=== PATIENT | male | born 1995 | race African-American/Black ===

== ENCOUNTER 2025-10-08 16:53 | Inpatient (IN) | payer SELFPAY ==
[2025-10-08 17:03] VITALS: BP 143/93; PULSE 82; RESP 16; TEMP 36.6; O2SAT 100
--- NOTE | 2025-10-08 17:22 | W.ED.PSYCHS ---
HPI - Psych General: Chief Complaint: Psychiatric Symptoms Stated Complaint: 96 HOLD Time Seen by Provider: 10/08/25 16:54 Source: patient and police Limitations: no limitations History of Present Illness: 30-year-old male who is here under court ordered 96-hour hold. Family states that he has had erratic behavior with paranoia and some hallucinations. Patient here denies SI HI but will not answer most of my questions he states he has had psych diagnoses in the past but will not disclose them to me. Is not on any meds currently Related Data Allergies Allergy/AdvReac Type Severity Reaction Status Date / Time No Known Allergies Allergy Verified 10/08/25 17:03 Review of Systems Psych: Reports: mood swings Physical Exam Const: COMMON NORMALS: no acute distress, patient oriented x3 and healthy appearing HENMT: COMMON NORMALS: normocephalic and atraumatic HEAD & SCALP: normocephalic and atraumatic Neck/C-Spine: COMMON NORMALS: full ROM and supple Chest: COMMONS NORMALS: normal inspection of the chest Resp: COMMON NORMALS: normal respiratory effort Cardio: COMMON NORMALS: regular rate RATE: regular rate Extremity: COMMON NORMALS: normal to inspection and full ROM Neuro: COMMON NORMALS: patient oriented x3, moves all extremities and no focal motor deficits Psych: COMMON NORMALS: mental status grossly normal and Normal thought process present; negative for cooperative THOUGHT PROCESS: Normal thought process present Skin: COMMON NORMALS: no rashes or lesions noted and no wounds GENERAL SKIN EXAM: no rashes or lesions noted Course Vital Signs: Vital signs: Vital Signs Temperature 97.8 F 10/08/25 17:03 Pulse Rate 82 10/08/25 17:03 Respiratory Rate 16 10/08/25 17:03 Blood Pressure 143/93 10/08/25 17:03 Pulse Oximetry 100 10/08/25 17:03 MDM - Psych Medical Decision Making Patient presents here with acute psychosis placed on a court ordered 96-hour hold. He is medically cleared labs here are all normal spoke to psychiatrist will admit at this time. Medical Records I reviewed the patient's medical records. Lab Data I reviewed the patient's lab results. 10/08/25 18:04 10/08/25 18:04 Laboratory Results WBC 10.37 10^3/uL (3.29-11.43) 10/08/25 18:04 RBC 4.88 10^6/uL (3.85-5.65) 10/08/25 18:04 Hgb 14.30 g/dL (11.27-16.99) 10/08/25 18:04 Hct 43.2 % (37-53) 10/08/25 18:04 MCV 88.5 fl (82-101) 10/08/25 18:04 MCH 29.3 pg (27-33) 10/08/25 18:04 MCHC 33.1 g/dL (30-55) 10/08/25 18:04 RDW 14.9 % (12.1-15.1) 10/08/25 18:04 Plt Count 261 10^3/cmm (157-399) 10/08/25 18:04 MPV 9.0 fL (7.4-10.4) 10/08/25 18:04 Neut % (Auto) 72.4 % 10/08/25 18:04 Lymph % (Auto) 22.6 % 10/08/25 18:04 Wilkes % (Auto) 4.2 % 10/08/25 18:04 Eos % (Auto) 0.5 % 10/08/25 18:04 Baso % (Auto) 0.1 % 10/08/25 18:04 Neut # (Auto) 7.51 10^3/uL (1.8-7.7) 10/08/25 18:04 Lymph # (Auto) 2.3 10^3/uL (0.8-4.8) 10/08/25 18:04 Wilkes # (Auto) 0.4 10^3/uL (0.2-0.9) 10/08/25 18:04 Eos # (Auto) 0.1 10^3/uL (0.0-0.8) 10/08/25 18:04 Baso # (Auto) 0.0 10^3/uL (0.0-0.1) 10/08/25 18:04 Nucleated RBC % (auto) 0 % 10/08/25 18:04 Nucleated RBCs # 0.0 /100WBC 10/08/25 18:04 Urine Opiates Screen Negative ng/mL (Negative) 10/08/25 17:10 Ur Barbiturates Screen Negative ng/mL (Negative) 10/08/25 17:10 Ur Phencyclidine Scrn Negative ng/mL (Negative) 10/08/25 17:10 Ur Amphetamines Screen Negative ng/mL (Negative) 10/08/25 17:10 U Benzodiazepines Scrn Negative ng/mL (Negative) 10/08/25 17:10 Urine Cocaine Screen Negative ng/mL (Negative) 10/08/25 17:10 U Marijuana (THC) Screen Positive ng/mL (Negative) H 10/08/25 17:10 No radiology studies performed this visit Discharge Plan Discharge Patient Disposition: Admitted As Inpatient Clinical Impression: Acute psychosis Condition: Stable Coding Level of Care Code ED Principal Systems Architect for Lacie Villasenor
[2025-10-08 17:40] LABS: PCP Screen Urine Negative (Negative)
[2025-10-08 18:10] LABS: Hematocrit 43.2 % (37-53); Hemoglobin 14.30 g/dL (11.27-16.99); Mean Corpuscular HGB Conc 33.1 g/dL (30-55); Mean Corpuscular Hemoglobin 29.3 pg (27-33); Mean Corpuscular Volume 88.5 fl (82-101); Nucleated Red Blood Cells % 0 %; Platelet Count 261 10^3/cmm (157-399); Red Blood Count 4.88 10^6/uL (3.85-5.65); White Blood Count 10.37 10^3/uL (3.29-11.43)
[2025-10-08 18:32] LABS: Alanine Aminotransferase 10 U/L (0-41); Albumin Level 4.4 g/dL (3.5-5.2); Alkaline Phosphatase 59 U/L (40-130); Anion Gap 16.0 (5-19); Aspartate Amino Transferase 12 U/L (0-40); Blood Urea Nitrogen 12 mg/dL (6-20); Calcium 9.3 mg/dL (8.5-10.5); Carbon Dioxide 26 mmol/L (22-29); Chloride 101 mmol/L (98-107); Globulin 3.0 g/dL (1.3-4.6); Glucose 130 mg/dL (65-115); Osmolality Calculated 290 mOsm/kg (285-295); Potassium 4.0 mmol/L (3.5-5.1); Sodium 139 mmol/L (136-145); Total Protein 7.4 g/dL (6.6-8.7)
[2025-10-08 18:40] LABS: Acetaminophen < 5.0 ug/mL (10-30); Alcohol Level < 10 mg/dL (0-10); Salicylate < 0.3 mg/dL (3-10)
--- OUTSIDE RECORDS SUMMARY | 2025-10-08 20:51 | XMS_ITS | Encounter Summary ---
Author Organization [facility] Address [address] [place] [address] Care Team Providers Care Freight Trucker Name Role Phone Osman Her MD Primary Care Provider Unavaila ble Encounter Details Date Type Department Care Team (Latest Contact Info) Description 02/06/1998 Outpatient Historical [facility] [place] [address] [place] [phone] Osman Her MD NO ADDRESS ON FILE Unspecified viral infection, in conditions classified elsewhere and of unspecified site (Primary Dx) Social History Tobacco Use Types Packs/Day Years Used Date Smoking Tobacco: Never Assessed Sex and Gender Information Value Date Recorded Sex Assigned at Not on file 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
--- OUTSIDE RECORDS SUMMARY | 2025-10-08 20:51 | XMS_ITS | Encounter Summary ---
Author Organization [facility] Address [address] [place] [address] Care Team Providers Care Petroleum Analyst Name Role Phone Osman Her MD Primary Care Provider Unavaila ble Encounter Details Date Type Department Care Team (Latest Contact Info) Description 05/29/2003 Inpatient Historical [facility] Emergency Department [address] [place] [address] Rocael Lomas MD [address] [address] ACUTE APPENDICITIS NOS (Primary Dx) Social History Tobacco Use Types Packs/Day Years Used Date Smoking Tobacco: Never Assessed Sex and Gender Information Value Date Recorded Sex Assigned at Not on file 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
--- OUTSIDE RECORDS SUMMARY | 2025-10-08 20:51 | XMS_ITS | Clinical Summary ---
Author Organization [facility] Address [address] [facility] [facility] Attn: Epic Prelude ADT GENARO SHEN [address] Care Team Providers Care Aircraft Technician Name Role Phone Unavailable Primary Care Provider Unavailabl e Allergies No known active allergies Medications No known medications Encounters Date Type Department Care Team Description 09/09/2025 External Device Data [facility] ABSTRACTION Provider, Abstract 09/02/2025 External Device Data [facility] ABSTRACTION Provider, Abstract 09/02/2025 External Device Data [facility] ABSTRACTION Provider, Abstract 08/27/2025 External Device Data [facility] ABSTRACTION Provider, Abstract 08/27/2025 External Device Data [facility] ABSTRACTION Provider, Abstract 08/12/2025 External Device Data [facility] ABSTRACTION Provider, Abstract 07/15/2025 External Device Data [facility] ABSTRACTION Provider, Abstract from Last 3 Months Immunizations Immunization Administration Dates Next Due (M-M-R II/PRIORIX)(12 MO UP) MEASLES, MUMPS AND RUBELLA VIRUS VACCINE, 0.5 ML IM/SUBCUT 05/29/1998,04/14/1995 Dt Dtp Dtap Vaccine 05/29/1998, 5,03/25/1994,01/18,1993 HIB, Unspecified Formulation 04/14/1995, 03/25/1994,01/18/1994,11/19 Hepatitis B Vaccine 1994,03/22/1994,1993 IPV/OPV 05/29/1998, 4,01/18/1994,11/19 Meningococcal A Conjugate Vaccine IM 01/07/2009 Social History Tobacco Use Types Packs/Day Years Used Date Smoking Tobacco: Every Day Cigarettes Smokeless Tobacco: Never Alcohol Use Standard Drinks/Week Comments No 0 (1 standard drink = 0.6 oz pur e alcohol) Feeling Safe Answer Date Recorded Are you in a relationship wi th someone who hurts you emotionally and/or physically? 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 Gender Identity Not on file Sexual Orientation Not on file Last Filed Vital Signs Vital Sign Reading Time Taken Comments Blood Pressure 120/60 02/10/2025 4:41 PM CDT Pulse 70 02/10/2025 4:41 PM CDT Temperature 36.5 C (97.7 F) 02/10/2025 3:55 PM CDT Respiratory Rate 20 02/10/2025 4:41 PM CDT Oxygen Saturation 100% 02/10/2025 4:41 PM CDT Inhaled Oxygen Concentration - - Weight 63.5 kg (140 lb) 02/10/2025 3:55 PM CDT Height 172.7 cm (5' 8 ) 02/10/2025 3:55 PM CDT Body Mass Index 21.29 02/10/2025 3:55 PM CDT Plan of Treatment Health Maintenance Due Date Last Done Comments DTAP/TDAP/TD VACCINES (6 - Tdap) 2004 05/29/1998, 05/29/1998, 04/14/1995, Additional history exists INFLUENZA VACCINE (#1) 2025 HEPATITIS B VACCINES Completed 1994, 1994, 03/22/1994, Additional history exists HPV VACCINES (No Doses Required) Completed Insurance [facility] [employer] RX [facility] Commercial
--- OUTSIDE RECORDS SUMMARY | 2025-10-08 20:51 | XMS_ITS | Encounter Summary ---
Author Organization [facility] Address [address] [place] [address] Care Team Providers Care Membership Sales Manager Name Role Phone Osman Her MD Primary Care Provider Unavaila ble Encounter Details Date Type Department Care Team (Latest Contact Info) Description 03/07/2003 Outpatient Historical [facility] [address] [place] [phone] Osman Her MD NO ADDRESS ON FILE INJURY-SITE NOS (Primary Dx) Social History Tobacco Use Types Packs/Day Years Used Date Smoking Tobacco: Never Assessed Sex and Gender Information Value Date Recorded Sex Assigned at Not on file 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
--- OUTSIDE RECORDS SUMMARY | 2025-10-08 20:51 | XMS_ITS | Encounter Summary ---
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
--- OUTSIDE RECORDS SUMMARY | 2025-10-08 20:51 | XMS_ITS | Encounter Summary ---
Author Organization [facility] Address [address] [place] [address] Care Team Providers Care Sugar Trucker Name Role Phone Osman Her MD Primary Care Provider Unavaila ble Encounter Details Date Type Department Care Team (Late st Contact Info) Description 05/29/1998 Outpatient Historical [facility] [place] [address] [place] [id number] Osman Her MD NO ADDRESS ON FILE Social History Tobacco Use Types Packs/Day Years Used Date Smoking Tobacco: Never Assessed Sex and Gender Information Value Date Recorded Sex Assigned at Not on file 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
--- OUTSIDE RECORDS SUMMARY | 2025-10-08 20:51 | XMS_ITS | Encounter Summary ---
Author Organization [facility] Address [address] [place] [address] Care Team Providers Care Shot Bagger Name Role Phone Osman Her MD Primary Care Provider Unavaila ble Encounter Details Date Type Department Care Team (Latest Contact Info) Description 02/04/2004 Outpatient Historical [facility] Orthopedics- [address] [place] 

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
--- OUTSIDE RECORDS SUMMARY | 2025-10-08 20:51 | XMS_ITS | Encounter Summary ---
Author Organization [facility] Address [address] [place] [address] Care Team Providers Care Play Leader Name Role Phone Osman Her MD Primary Care Provider Unavaila ble Encounter Details Date Type Department Care Team (Latest Contact Info) Description 07/11/2000 Outpatient Historical [facility] Pediatrics[facility] [address] [place] [phone] Memo Degroot MD NO ADDRESS ON FILE Acute pharyngitis (Primary Dx) Social History Tobacco Use Types Packs/Day Years Used Date Smoking Tobacco: Never Assessed Sex and Gender Information Value Date Recorded Sex Assigned at Not on file 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
--- OUTSIDE RECORDS SUMMARY | 2025-10-08 20:51 | XMS_ITS | Clinical Summary ---
Author Organization [facility] Address [address] [place] [address] Phone Care Team Providers Care Crop Specialist Name Role Phone Unavailable Primary Care Provider Unavailabl e Allergies No known active allergies Medications meloxicam (MOBIC) 15 mg Oral tabletIndication s:Right shoulder injury Take 1 Tab by mouth daily. 30 Tab 1 07/17/2013 Active Hospital, Clinic, or Other Facility Administered Medication Ordered Dose Route Frequency Start Date End Date Status methylPREDNISolone acetate (DEPO-Medrol) injection 80 mgIndications:Contact dermatitis, unspecified contact dermatitis type, unspecified trigger,Pityriasis rosea-like skin eruption 80 mg IM ONE TIME ONLY 10/09/2017 Active Active Problems No known active problems Immunizations Immunization Administration Dates Next Due (M-M-R II/PRIORIX)(12 MO UP) MEASLES, MUMPS AND RUBELLA VIRUS VACCINE, 0.5 ML IM/SUBCUT 05/29/1998,04/14/1995 Dt Dtp Dtap Vaccine 05/29/1998, 5,03/25/1994,01/18,1993 HIB, Unspecified Formulation 04/14/1995, 03/25/1994,01/18/1994,11/19 Hepatitis B Vaccine 1994,03/22/1994,1993 IPV/OPV 05/29/1998,199 4,01/18/1994,11/19 Meningococcal A Conjugate Vaccine IM 01/07/2009 Social History Tobacco Use Types Packs/Day Years Used Date Smoking Tobacco: Every Day Cigarettes 0.5 2 Smokeless Tobacco: Never Tobacco Cessation:Ready to Q uit: No Alcohol Use Standard Drinks/Week Comments No 0 (1 standard drink = 0.6 oz pur e alcohol) Sex and Gender Information Value Date Recorded Sex Assigned at Not on file Legal Sex Male 6:28 AM RN RESOURCE NURSE Gender Identity Not on file Sexual Orientation Not on file Last Filed Vital Signs Vital Sign Reading Time Taken Comments Blood Pressure 122/70 10/09/2017 2:11 PM RN RESOURCE NURSE Pulse 82 10/09/2017 2:11 PM RN RESOURCE NURSE Temperature 36.8 C (98.2 F) 10/09/2017 2:11 PM RN RESOURCE NURSE Respiratory Rate 18 01/17/2012 4:20 PM CDT Oxygen Saturation 100% 10/09/2017 2:11 PM RN RESOURCE NURSE Inhaled Oxygen Concentration - - Weight 67.1 kg (148 lb) 10/09/2017 2:11 PM RN RESOURCE NURSE Height 165.1 cm (5' 5 ) 10/09/2017 2:11 PM RN RESOURCE NURSE Body Mass Index 24.63 10/09/2017 2:11 PM RN RESOURCE NURSE Plan of Treatment Health Maintenance Due Date Last Done Comments DTAP/TDAP/TD VACCINES (6 - Tdap) 2004 05/29/1998, 04/14/1995, 03/25/1994, Additional history exists INFLUENZA VACCINE (#1) 2025 HEPATITIS B VACCINES Completed 1994, 03/22/1994, 1993 HPV VACCINES (No Doses Required) Completed Insurance [employer] Member Subscriber Plan / Payer (Ef fective 2013-Present) Name:Sd Leon Relation to Subscriber:Employee Name:[employer]INTIA Address: [address] [place] [address] Payer ID:Not on file Group ID:Not on file Type:Workers Compensation Address: [address] [phone]
--- NOTE | 2025-10-09 02:15 | PC.NURSE ---
Pt resting quietly in bed with eyes closed. RR even and unlabored.
--- NOTE | 2025-10-09 04:10 | PC.NURSE ---
Pt is resting in bed with eyes closed. RR even and unlabored.
--- NOTE | 2025-10-09 06:44 | PC.NURSE ---
Pt is lying in bed with eyes closed. RR even and unlabored.
--- NOTE | 2025-10-09 07:38 | PC.PHAR ---
No recent medications found except Trazodone from [facility] in April 2025.
[2025-10-09 14:39] VITALS: BP 152/91; PULSE 100; O2SAT 100
[2025-10-09 14:59] VITALS: BP 137/93; PULSE 93; RESP 18; TEMP 36.7; O2SAT 100
[2025-10-09 20:19] VITALS: BP 120/81; PULSE 100; RESP 18; TEMP 37.4; O2SAT 99
[2025-10-09] MEDS: MELATONIN 3 MG TABLET 9 MG PO (21:07)
[2025-10-10 06:00] VITALS: RESP 16
--- NOTE | 2025-10-10 06:47 | PC.NURSE ---
vs not completed pt sleeping soundly, nurse notified resp 16
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
[2025-10-10 13:55] VITALS: BP 131/76; PULSE 108; RESP 18; TEMP 37.1; O2SAT 100
--- NOTE | 2025-10-10 15:03 | PC.NURSE ---
Patient assessment completed. Patient denies SI/HI/AVH. Patient reports nightmares that are based on his environment. He states nightmare come from the brain and not the environment. He reports asked this RN if i believed in ghosts. He reports that the ghosts dragons are present even though he knows in a scientific sense they are not real. He reports that the ghosts started following him years ago when he let yazidism friends move into his home. Asked patient the social determinants of health questionnaire. Patient reports that he has food but has had to turn his machines off due to the energy that they emit. He reports that the being left as soon as the heater kicked on in the dayroom. He reports a decrease of the being after he talks about them. Reorientation to unit norms and instructed to talk to staff if this being is a concern or he has intrusive thoughts. Patient verbalized understanding.
--- NOTE | 2025-10-10 16:35 | PC.NURSE ---
Patients mother was here to visit patient. She reports that patient was on Haldol deconate and has not had a dose for the past 6 months. She verbalized that the patient believes that he can't . Patient states that he only leaves the house to visit his aunt every few days due to needing to hear a familiar voice. If questions mother can be reached on her cell. [phone].
[2025-10-10 20:10] VITALS: BP 142/89; PULSE 106; RESP 18; TEMP 37.6; O2SAT 100
[2025-10-10] MEDS: MELATONIN 3 MG TABLET 9 MG PO (23:40)
[2025-10-11 06:00] VITALS: RESP 16
--- NOTE | 2025-10-11 06:45 | PC.NURSE ---
vs not completed pt sleeping soundly, nurse notified resp 16
--- NOTE | 2025-10-11 13:34 | P.NPUPN_ITS ---
Subjective NPU 2 Subjective: Patient presented today reporting that he is doing all right. He continues to seem to downplay the odd, likely psychotic thoughts that he has per staff reports and direct observation. He is fairly adept at avoiding some subjects that would reveal his level of impairment. Speaking with some staff about his belief that he is invincible and that he is a God. 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 It is unclear whether that is accurate or not but he speaks very astutely about it. He continues to deny desire or need for medication. Mental Status Exam 2 MSE Comments: This is a well-nourished well-developed male in hospital scrubs with adequate grooming and eye contact with fairly wild curly hair. No abnormal movements except for mild psychomotor retardation. Cooperative with exam and no acute distress. Speech was slightly decreased rate and volume and measured. Mood described as good, affect mostly euthymic. Thought process organized. Thought content: Patient denied suicidal or homicidal he, there are no delusions reported but possible paranoid, persecutory, grandiose and hyperreligious delusions noted, he denied auditory or visual hallucinations. Denies any thoughts to hurt or kill himself, and no history of self-injurious behavior. Denies hearing voices or seeing things that others cannot. Expressed concerns about AI interfering with the internet, which could suggest some level of delusional thinking, but acknowledged he cannot prove or disprove it. Denies understanding or experiencing anxiety or depression. Describes himself as a nice jaylen and honest person, suggesting a stable mood. Attention and concentration appeared intact and memory was somewhat unreliable but likely intentionally so but none were formally tested. He is alert and oriented x person and place. Insight is limited, judgment appeared fair, impulse control limited. Vitals/I&O/Wt Last Vital Signs Temp 99.7 F H 10/10/25 20:10 Pulse 106 H 10/10/25 20:10 Resp 16 10/11/25 06:00 BP 142/89 10/10/25 20:10 Pulse Ox 100 10/10/25 20:10 O2 Del Method Room Air 10/10/25 20:10 Data NPU 10/08/25 18:04 10/08/25 18:04 A&P Assessment and plan 1. Acute psychosis: 2. Cannabis use disorder: Plan: This is a 30-year-old male who is unknown to [facility] psychiatry with some reports of some past mental health treatment years in the past per his family's request but never by his own assessment and need who presents with reports of odd behavior appearing a bit eccentric likely downplaying his cannabis use and 96-hour hold. No report of depression, anxiety or any other significant symptoms however concerns for odd behavior belief of instability or guide complex and occult paranoia may be present. Plan Collateral information will be obtained to clarify concerns regarding reported bizarre behavior and possible psychosis. Further assessment will be conducted as information is gathered, with ongoing evaluation planned on a day-to-day basis. 1. Consider medication options but patient reports no interest in medication. 2. Continue every 15 minute checks for safety. 3. Encourage individual, group and milieu therapy. 4. Encourage sober living treatment after discharge at the highest level care to which he is willing to commit. 5. Obtain collateral information. 6. Evaluate against backdrop of the 96-hour hold. PDMP PDMP Reviewed: Not Reviewed Involuntary Hold Information 2 Hold Status: Legal Status: 96 Hour Hold Date/Time Hold Expires: 10/14/2025 @ 1719 Attestations NPU 2 Medical Necessity Statement*: Inpatient hospitalization is medically necessary and the clinically appropriate intervention at this time. Will monitor/initiate medications and make changes as indicated. Likely length of stay 2-4 days. Coding Level of Care Code Acute Code for Chg Fwd Diagnoses Acute psychosis F23 Cannabis use disorder F12.90
[2025-10-11 13:36] VITALS: BP 146/87; PULSE 82; RESP 18; TEMP 36.8; O2SAT 97
--- NOTE | 2025-10-11 14:33 | PC.NURSE ---
Earlier in the shift the patient reported to the nurses station asking how he could report to police that he is being gaslit. Instructed patient that if he has complaints or is feeling harassed he could speak to the court to file an exparte. Patient was cooperative during the assessment and repeatedly mentioned that those with episcopalian have been harassing him, specifically his aunt. He also reports that he is fluent in Albanian, Turkmen and Slovak as well as other languages. Patient reports that he had previously been on Haldol IM and Resperidone PO and these medications made him feel like he had a weight inside of his head. He denies SI/HI/AVH. He reports that the ear plugs help with the sounds he has been hearing.
--- NOTE | 2025-10-11 19:41 | PC.NURSE ---
After assessment pt admitted hearing a computer A.I. and machines talking to him as if it was normal.
[2025-10-11 20:18] VITALS: BP 154/104; PULSE 87; RESP 17; TEMP 36.8; O2SAT 100
[2025-10-12 06:00] VITALS: RESP 17; BMI 21.4
--- NOTE | 2025-10-12 08:34 | PC.NURSE ---
pt slept thru breakfast. pt was woke up x2.
[2025-10-12 14:32] VITALS: BP 131/91; PULSE 93; RESP 18; TEMP 37; O2SAT 100
--- NOTE | 2025-10-12 17:12 | P.NPUPN_ITS ---
Subjective NPU 2 Subjective: 30-year-old male admitted with psychosis currently involuntarily hospitalized. The patient appeared to be having an extended conversation with himself while in the day room but when asked this question he had denied having a conversation. He had continued to state that he did not need to be here in the hospital and did not know why he was here. He had acknowledged having previously been in the hospital. He remained somewhat resistant as a historian by being guarded regarding his beliefs as he had stated that he had practiced a specific yazidism. 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 The patient appeared annoyed and asked if this health technical writer was okay repeatedly. Mental Status Exam 2 MSE Comments: This is a well-nourished well-developed male in hospital scrubs with adequate grooming and eye contact with curly hair. No abnormal involuntary motor movements except for mild psychomotor retardation. He was somewhat cooperative with exam and no acute distress. Speech was slightly decreased in rate and normal in volume. Mood described as good, affect was irritable. Thought process was linear and organized. Thought content: Patient denied suicidal or homicidal ideation. There was evidence of ideas of reference and grandiosity appreciated. Denies hearing voices or seeing things that others cannot but did appear to be responding to internal stimuli. Attention and concentration appeared poor. Recent and remote memory were impaired. He is alert and oriented x person and place. Insight is limited, judgment appeared poor and impulse control was poor. Vitals/I&O/Wt Last Vital Signs Temp 98.6 F 10/12/25 14:32 Pulse 93 10/12/25 14:32 Resp 18 10/12/25 14:32 BP 131/91 10/12/25 14:32 Pulse Ox 100 10/12/25 14:32 O2 Del Method Room Air 10/11/25 20:18 Weight last 48 hrs Weight 65.998 kg Data NPU 10/08/25 18:04 10/08/25 18:04 A&P Assessment and plan 1. Acute psychosis: 2. Cannabis use disorder: Plan: This is a 30-year-old male who is unknown to [facility] psychiatry with some reports of some past mental health treatment years in the past per his family's request but never by his own assessment and need who presents with reports of odd behavior appearing a bit eccentric likely downplaying his cannabis use and 96-hour hold. No report of depression, anxiety or any other significant symptoms however concerns for odd behavior belief of instability or guide complex and occult paranoia may be present. Plan Collateral information will be obtained to clarify concerns regarding reported bizarre behavior and possible psychosis. Further assessment will be conducted as information is gathered, with ongoing evaluation planned on a day-to-day basis. 1. Consider medication options but patient reports no interest in medication and may require forced medications. 2. Continue every 15 minute checks for safety. 3. Encourage individual, group and milieu therapy. 4. Encourage sober living treatment after discharge at the highest level care to which he is willing to commit. 5. Obtain collateral information. 6. Evaluate against backdrop of the 96-hour hold. PDMP PDMP Reviewed: Not Reviewed Involuntary Hold Information 2 Hold Status: Legal Status: 96 Hour Hold Date/Time Hold Expires: 10/14/2025 @ 1719 Attestations NPU 2 Medical Necessity Statement*: Inpatient hospitalization is medically necessary and the clinically appropriate intervention at this time. Will monitor/initiate medications and make changes as indicated. The patient's likely length of stay is 5-7 days. Coding Level of Care Code Acute Code for g Fwd Diagnoses Acute psychosis F23 Cannabis use disorder F12.90
[2025-10-12 20:33] VITALS: BP 142/91; PULSE 98; RESP 17; TEMP 36.7; O2SAT 100
[2025-10-13 06:00] VITALS: RESP 16
--- NOTE | 2025-10-13 06:32 | PC.NURSE ---
vs not completed pt sleeping soundly nurse notified resp 16
[2025-10-13 14:00] VITALS: BP 123/85; PULSE 85; RESP 16; TEMP 36.6; O2SAT 99
--- NOTE | 2025-10-13 17:00 | P.NPUPN_ITS ---
Subjective NPU 2 Subjective: 30-year-old male admitted with psychosis currently involuntarily hospitalized. The patient had minimized any concerns that others had had regarding his placement here involuntarily. He had reported that he knew better. He had reported that he had done nothing dangerous and was inappropriately placed here. Patient continued to have conversations with himself while in the day room. Patient had reported that he had several homes and had many jobs and important things to do outside of this place. He had struggled at times with falling asleep. He continued to eat and drink and struggled with self-care with limited ability to complete activities of daily living. Mental Status Exam 2 MSE Comments: This is a well-nourished well-developed male in hospital scrubs with poor grooming and eye contact with disheveled curly hair. No abnormal involuntary motor movements except for mild psychomotor retardation. He was superficially cooperative with exam and no acute distress. Speech was decreased in rate and normal in volume. Mood described as okay. affect was exuberant Thought process was linear and organized. Thought content: Patient denied suicidal or homicidal ideation. There was evidence of ideas of reference and grandiosity appreciated. He denies hearing voices or seeing things that others cannot but did appear to be responding to internal stimuli. Attention and concentration appeared poor. Recent and remote memory were impaired. He is alert and oriented x person and place. Insight is limited, judgment appeared poor and impulse control was poor. Vitals/I&O/Wt Last Vital Signs Temp 97.9 F 10/13/25 14:00 Pulse 85 10/13/25 14:00 Resp 16 10/13/25 14:00 BP 123/85 10/13/25 14:00 Pulse Ox 99 10/13/25 14:00 O2 Del Method Room Air 10/13/25 14:00 10/13/25 10/13/25 10/13/25 06:59 14:59 22:59 Intake Total 240 / 240 Balance 240 / 240 Weight last 48 hrs Weight 65.998 kg Data NPU 10/08/25 18:04 10/08/25 18:04 A&P Assessment and plan 1. Acute psychosis: 2. Cannabis use disorder: Plan: This is a 30-year-old male who is unknown to [facility] psychiatry with some reports of some past mental health treatment years in the past per his family's request but never by his own assessment and need who presents with reports of odd behavior appearing a bit eccentric likely downplaying his cannabis use and 96-hour hold. No report of depression, anxiety or any other significant symptoms however concerns for odd behavior belief of instability or guide complex and occult paranoia may be present. Plan Collateral information will be obtained to clarify concerns regarding reported bizarre behavior and possible psychosis. Further assessment will be conducted as information is gathered, with ongoing evaluation planned on a day-to-day basis. 1. Consider medication options but patient reports no interest in medication and may require forced medications. 2. Continue every 15 minute checks for safety. 3. Encourage individual, group and milieu therapy. 4. Encourage sober living treatment after discharge at the highest level care to which he is willing to commit. 5. Obtain collateral information. 6. Continue to evaluate against backdrop of the 96-hour hold. PDMP PDMP Reviewed: Not Reviewed Involuntary Hold Information 2 Hold Status: Legal Status: 96 Hour Hold Date/Time Hold Expires: 10/14/2025 @ 1719 Attestations NPU 2 Medical Necessity Statement*: Inpatient hospitalization is medically necessary and the clinically appropriate intervention at this time. Will monitor/initiate medications and make changes as indicated. The patient's likely length of stay is 5-7 days. Coding Level of Care Code Acute Code for [facility] Fwd Diagnoses Acute psychosis F23 Cannabis use disorder F12.90
[2025-10-13 19:58] VITALS: BP 142/100; PULSE 97; RESP 18; TEMP 36.8; O2SAT 98
[2025-10-14 06:00] VITALS: BP 139/92; PULSE 75; RESP 16; TEMP 36.7; O2SAT 100
[2025-10-14 14:00] VITALS: BP 113/73; PULSE 106; RESP 15; TEMP 37.1; O2SAT 98
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
[2025-10-14 15:58] VITALS: BP 113/73; PULSE 106; RESP 15; TEMP 37.1; O2SAT 98
== END 2025-10-14 16:58 | disposition home or self-care (01) | DRG 885 ==
LOC: ER 18:20 → ER IP 20:21 → NP 10-09 14:19
PROVIDERS: Admitting Provider Psychiatry & Neurology Psychiatry; Emergency Provider Emergency Medicine; Visit Provider Psychiatry & Neurology Psychiatry
DX: F23 Brief psychotic disorder (principal); F17.210 Nicotine dependence, cigarettes, uncomplicated; F12.90 Cannabis use, unspecified, uncomplicated
CPT/HCPCS: 36415; 80053; 80306; 80307; 85025; 97150; 97165; 99285; J9999